=== PATIENT | female | born 1970 | race Caucasian/White ===

== ENCOUNTER → 2022-04-19 11:03 | Outpatient (CLI) | payer OTHER, SELFPAY ==
--- NOTE | ~2022-04-19 | XR_ITS ---
EXAMINATION: XR thoracic spine 3V, XR lumbar spine 2-3V DATE: 04/19/2022 12:03 INDICATION: Thoracic and lumbar spine pain. TECHNIQUE: 1. Standing AP, lateral and lateral swimmer's views of the thoracic spine were obtained. 2. Standing AP, lateral and coned-down lateral lumbosacral views of the lumbar spine were obtained. COMPARISON: None. FINDINGS: Thoracic spine: 18 degree thoracic levoscoliosis although this measurement may be slightly exaggerated by some rightw reny rotation of the patient. Mild upper thoracic kyphosis. Vertebral body heights are normal. Mild di sc height loss with small degenerative endplate osteophytes at a few levels in the mid and lower thor acic spine. Visualized lungs are clear with no pulmonary edema, pleural effusion or pneumothorax. Car diomediastinal silhouette is normal. Bilateral breast implants. Lumbar spine: 13 degree lumbar dextroscoliosis. Sagittal alignment is normal. Vertebral body heights are normal. Mi ld disc height loss on the left at L2-L3 and minimal disc height loss at L3-L4 and L4-L5. 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 Normal bowel gas pattern. IMPRESSION: 1. Mild S-shaped scoliosis of the thoracolumbar spine with mild spondylosis. Reviewed, dictated and finalized at location B. IMPRESSION: 1. Mild S-shaped scoliosis of the thoracolumbar spine with mild spondylosis.
== END ==
DX: M51.26 Other intervertebral disc displacement, lumbar region (principal); M41.85 Other forms of scoliosis, thoracolumbar region; M47.816 Spondylosis without myelopathy or radiculopathy, lumbar region
CPT/HCPCS: 72072; 72100